=== PATIENT | female | born 1995 | race Caucasian/White ===

== ENCOUNTER 2023-12-25 19:52 | Emergency (ER) | payer SELFPAY ==
[~2023-12-25] VITALS: Ht 165.1 cm; Wt 79.4 kg
[2023-12-25 19:58] VITALS: BP_SYST 157; PULSE 129; RESP 22; TEMP 98.6; O2SAT 98
== END 2023-12-25 20:38 | disposition left against medical advice (07) ==
LOC: SED 19:52
DX: R07.9 Chest pain, unspecified (principal); Z53.21 Procedure and treatment not carried out due to patient leaving prior to being seen by health care provider
CPT/HCPCS: 93005; 99281